=== PATIENT | female | born 1955 | race Caucasian/White ===

== ENCOUNTER 2017-08-18 13:35 | Emergency (ER) | payer MEDICAID ==
--- NOTE | 2017-08-18 14:47 | CT ---
CT BRAIN NONCONTRAST: Date: 08/18/17 HISTORY: 62-year-old female with seizure. FINDINGS: There is no midline shift or any other mass effect. There is no evidence of acute intracranial hemor rhage, large cortical infarct, obstructive hydrocephalus, or extraaxial fluid collection. The calvar ium is intact. IMPRESSION: No acute intracranial findings. jn [] POS: [facility]
== END 2017-08-18 18:35 | disposition home or self-care (01) ==
LOC: ERS 13:35
DX: G40.909 Epilepsy, unspecified, not intractable, without status epilepticus (principal); K21.9 Gastro-esophageal reflux disease without esophagitis; E78.00 Pure hypercholesterolemia, unspecified; Z86.73 Personal history of transient ischemic attack (TIA), and cerebral infarction without residual deficits; Z79.899 Other long term (current) drug therapy
CPT/HCPCS: 70450